=== PATIENT | female | born 1960 | race Two or more races ===

== ENCOUNTER 2025-01-22 13:32 | Emergency (ER) | payer OTHER ==
[~2025-01-22] VITALS: Ht 167.6 cm; Wt 72.6 kg
[2025-01-22] MEDS ORDERED: AVAPRO150 MG PO (13:49)
[2025-01-22] MEDS ORDERED: ROSUVASTATIN CA10 MG PO (13:49)
== END 2025-01-22 15:11 | disposition home or self-care (01) ==
LOC: ER 14:22
DX: S60.021A Contusion of right index finger without damage to nail, initial encounter (principal); W22.8XXA Striking against or struck by other objects, initial encounter; Y93.89 Activity, other specified; Y92.89 Other specified places as the place of occurrence of the external cause; Z88.8 Allergy status to other drugs, medicaments and biological substances